=== PATIENT | female | born 1975 | race Caucasian/White ===

== ENCOUNTER 2016-09-03 20:43 | Emergency (ER) | payer OTHER ==
[~2016-09-03] VITALS: Wt 77.0 kg
[~2016-09-03 20:43] MED LIST: ACET-514 PO; CIPR500T4 PO; HYDR-3498 PO; IBUP-1542 PO; NAPR-688 PO; NO MEDS
--- NOTE | 2016-09-03 22:51 | ERD ---
ER Documentation Chief Complaint Date/Time DATE: 09/03/16 TIME: 22:48 Chief Complaint 6-7 weeks lmp 07/17/17 heavy vag bleed & cramps started this am HPI 41 year old female who is approximately 6-7 weeks , last was repaired , with a history of 1 miscarriage as well as 4 abortions comes to emergency room vaginal bleeding and cramping that started yesterday. She had a previous ultrasound done about 5 days ago and was told that she had a very early . Patient states that she is currently being followed by clinic , and would like to get a D&C however developed some bleeding and cramping yesterday. She denies fevers, chills or dizziness. ROS All systems reviewed and are negative except as per history of present illness. Medications Home Meds Active Scripts Ibuprofen* (Motrin*) 600 Mg Tab, 600 MG PO Q8 for 10 Days, #30 TAB 0 Refills Prov:COLLEEN MEHTA PA-C 04/21/16 Acetaminophen (Acetaminophen) 325 Mg Tablet, 975 MG PO Q8 Y for FEVER, #30 TAB Prov:SILAS BASSETT DO 10/06/15 Naproxen* (Naproxen*) 500 Mg Tablet, 500 MG PO BID Y for PAIN, #20 TAB Prov:SILAS BASSETT DO 10/06/15 Ciprofloxacin Hcl* (Ciprofloxacin Hcl*) 500 Mg Tablet, 500 MG PO BID, #20 TAB Prov:SILAS BASSETT DO 10/06/15 Hydrocodone Bit-Acetaminophen* ([place]*) 5-325 Mg Tab, 1 TAB PO Q6 Y for PAIN, # 20 TAB Prov:DANYEL SHAIKH PA-C 06/11/15 Reported Medications [No Meds] No Conflict Check 11/07/12 Allergies Allergies: Coded Allergies: No Known Drug Allergies (Verified Allergy, Mild, 09/21/13) PMhx/Soc Medical and Surgical Hx: pt denies Medical Hx, pt denies Surgical Hx History of Surgery: No Anesthesia Reaction: No Hx Neurological Disorder: No Hx Respiratory Disorders: No Hx Cardiac Disorders: No Hx Psychiatric Problems: No Hx Miscellaneous Medical Probl: No Hx Alcohol Use: No Hx Substance Use: No Hx Tobacco Use: No Smoking Status: Never smoker Physical Exam Vitals Vital Signs Date Time Temp Pulse Resp B/P Pulse Ox O2 Delivery O2 Flow Rate FiO2 09/03/16 21:12 98.5 74 20 143/72 100 Physical Exam General: Well-developed, well-nourished. The patient appears in no acute distress. HEENT: Head is normocephalic, atraumatic. No scleral icterus. Neck: Supple. Nontender. Lungs: Clear to auscultation. Normal air movement. Heart: Regular rate and rhythm. S1 and S2 are normal. No murmurs, gallops, or rubs. Abdomen: Soft, nontender, nondistended. Bowel sounds are normoactive. Extremities: No clubbing or cyanosis. Normal pulses. Moving extremities x 4. No weakness. Neurologic: Alert and oriented 3. No focal deficits. Skin: Normal turgor. No rash or lesions. Result Diagram: 09/03/16 2300 Results 24 hrs Laboratory Tests Test 09/03/16 23:00 Basophils # 0.010^3/ul Basophils % 0.5% Beta HCG, Quantitative 35.6mIU/ml Eosinophils # 0.110^3/ul Eosinophils % 1.0% Hematocrit 39.6% Hemoglobin 13.2g/dl Lymphocytes # 1.610^3/ul Lymphocytes % 21.5% Mean Corpuscular Hemoglobin 31.6pg Mean Corpuscular Hemoglobin Concent 33.4g/dl Mean Corpuscular Volume 94.5fl Mean Platelet Volume 8.8fl Monocytes # 0.410^3/ul Monocytes % 5.5% Neutrophils # 5.210^3/ul Neutrophils % 71.5% Nucleated Red Blood Cells # 0.010^3/ul Nucleated Red Blood Cells % 0.0/100WBC Platelet Count 94403^3/UL Red Blood Count 4.1910^6/ul Red Cell Distribution Width 13.3% Urine Bacteria OCCASIONAL Urine Bilirubin NEGATIVE Urine Clarity HAZY Urine Color LT. YELLOW Urine Glucose NEGATIVE% Urine Hemoglobin 3+ Urine Ketones NEGATIVE Urine Leukocyte Esterase NEGATIVE Urine Microscopic RBC >200/HPF Urine Microscopic WBC 0-2/HPF Urine Nitrite NEGATIVE Urine Specific [place] 1.020 Urine Squamous Epithelial Cells FEW Urine Total Protein NEGATIVE Urine Urobilinogen 0.2 E.U./dL Urine pH 6.0 White Blood Count 7.310^3/ul Procedures/MDM 41-year-old female who is 14 comes to the ER with vaginal bleeding. Patient's original plan was to get a D&C, her ultrasound today shows no evidence of intrauterine and hCG is only 35. Patient likely presents with a spontaneous , no evidence of ectopic or infectious process. She was given Tylenol for pain and will be discharged home to follow- up with her OB in 3-4 days. Departure Diagnosis: Primary Impression: Vaginal bleeding in patient at less than 20 weeks gestation Condition: DANYEL Aguilar PA-C Sep 03, 2016 22:51
[2016-09-03 23:17] LABS: ADD UMIC YES; URINE BILIRUBIN (Dip) NEGATIVE (NEGATIVE); URINE BLOOD (Dip) 3+ (NEGATIVE); URINE COLOR LT. YELLOW (YELLOW); URINE GLUCOSE (Dip) NEGATIVE (NEGATIVE); URINE KETONES (Dip) NEGATIVE (NEGATIVE); URINE LEUKOCYTE ESTERASE (Dip) NEGATIVE (NEGATIVE); URINE NITRITE (Dip) NEGATIVE (NEGATIVE); URINE TOTAL PROTEIN (Dip) NEGATIVE (NEGATIVE); URINE UROBILINOGEN (Dip) 0.2 E.U./dL (0.1-1.0)
[2016-09-03 23:19] LABS: BASOPHILS % 0.5 % (0.0-2.0); EOSINOPHILS # 0.1 10^3/ul (0.0-0.5); HEMATOCRIT 39.6 % (37.0-47.0); HEMOGLOBIN 13.2 g/dl (12.0-16.0); LYMPHOCYTES # 1.6 10^3/ul (0.8-2.9); LYMPHOCYTES % 21.5 % (15.0-51.0); MEAN CORPUSCULAR HEMOGLOBIN 31.6 pg (29.0-33.0); MEAN CORPUSCULAR HGB CONC 33.4 g/dl (32.0-37.0); MEAN CORPUSCULAR VOLUME 94.5 fl (82.0-101.0); MEAN PLATELET VOLUME 8.8 fl (7.4-10.4); MONOCYTE # 0.4 10^3/ul (0.3-0.9); MONOCYTES % 5.5 % (0.0-11.0); NEUTROPHIL # 5.2 10^3/ul (1.6-7.5); NEUTROPHILS % 71.5 % (39.0-77.0); PLATELET COUNT 276 10^3/UL (140-440); RED BLOOD COUNT 4.19 10^6/ul (4.20-5.40); RED CELL DISTRIBUTION WIDTH 13.3 % (11.5-14.5); UNCORRECTED WBC 7.3 10^3/ul (4.8-10.8); WHITE BLOOD COUNT 7.3 10^3/ul (4.8-10.8)
[2016-09-03 23:20] LABS: CONDITION 1
[2016-09-03 23:30] LABS: BACTERIA,URINE OCCASIONAL; SQUAMOUS EPITHELIAL CELL,UR FEW; URINE RBCS >200 /HPF (0)
--- NOTE | 2016-09-03 23:56 | RADRPT ---
PROCEDURE: US Pelvis. CLINICAL INDICATION: Vaginal Bleed () TECHNIQUE: Multiple sonographic images of the pelvis were obtained utilizing a transabdominal and endovaginal technique. COMPARISON: None. FINDINGS: The uterus is visualized and measures 8.4 x 4.7 x 6 cm in size. The endometrial echo complex is thic kened and measures 15 mm. There is no evidence of intrauterine . There is no evidence for free fluid. The right ovary has a normal echotexture and measures 2.36 x 1.73 x 2.06 cm . The left ovary has a normal echotexture and measures 4.3 x 3.0 x 3.6 cm with 2.4 cm left ovarian cyst.. No adnexal masses are noted. Normal blood flow bilaterally. IMPRESSION: 1. No evidence of IUP or extrauterine . Thickened endometrium. Correlate with serial seru m beta HCG measurements exclude the possibility of ectopic . 2. 2.4 cm left ovarian cyst. 3. No free fluid in the cul-de-sac. RPTAT:AAJJ Physician Rj Date Time Electronically viewed and signed by Physician Rj on 09/03/2016 23:56 ADRIANE/
[2016-09-04] MEDS ORDERED: ACETAMINOPHEN 325 MG TAB PO ONE (00:30)
== END 2016-09-04 00:30 | disposition home or self-care (01) ==
LOC: FTE 20:43
DX: O20.9 Hemorrhage in early pregnancy, unspecified (principal); Z3A.01 Less than 8 weeks gestation of pregnancy
CPT/HCPCS: 36415; 76801; 76817; 81001; 84702; 85025; 86900; 86901; Z7502; Z7610; 81003

== ENCOUNTER 2017-02-13 18:56 | Emergency (ER) | payer OTHER ==
[~2017-02-13] VITALS: Ht 152.4 cm; Wt 75.0 kg
[2017-02-13 19:16] VITALS: Ht 152.4 cm; Wt 75.0 kg
[2017-02-13] MEDS ORDERED: FLUT9.9S NASAL (19:25)
[2017-02-13] MEDS ORDERED: IBUP-1542 PO (19:25)
[2017-02-13] MEDS ORDERED: CARB15DR48 LEFT EAR (19:25)
[2017-02-13] MEDS ORDERED: CETI10CA PO (19:25)
[2017-02-13] MEDS ORDERED: NAPH15DR22 BOTH EYES (19:25)
--- NOTE | 2017-02-13 19:40 | ERD ---
ER Documentation Chief Complaint Date/Time DATE: 02/13/17 TIME: 19:33 Chief Complaint Left ear muffled hearing, bilateral eye itching, runny nose and sneezing throat itchiness for 1 month HPI 42-year-old female presents here in emergency department for multiple complaints. Patient's complaining of bilateral eye itching, runny nose and sneezing throat patient has for 1 month. Patient denies any eye discharge. Patient denies any trauma in the eye, patient denies any vision changes. Patient denies any fever or chills. Patient is complaining of runny nose, nasal congestion with throat itchiness. Patient denies any stridor or shortness of breath. Patient also is complaining of muffled hearing in the left ear, feels like left ear canal is blocked. Patient denies any ear discharge. Patient denies any foreign body sensation in the ear. Patient did not take any medications to help with symptoms. ROS All systems reviewed and are negative except as per history of present illness. Medications Home Meds Active Scripts Naphazoline-Pheniramine* (Visine-A*) 15 Ml Drops, 2 DROP BOTH EYES Q4H Y for RED EYES, #1 BOT Prov:LONNIE MAGANA NP 02/13/17 Fluticasone Propionate (Flonase Allergy Relief) 9.9 Ml [place].susp, 1 SPRAY NASAL BID, #1 BOTTLE TO EACH NOSTRIL Prov:LONNIE MAGANA NP 02/13/17 Ibuprofen* (Motrin*) 600 Mg Tab, 600 MG PO Q6H Y for PAIN AND OR ELEVATED TEMP, #30 TAB Prov:LONNIE MAGANA NP 02/13/17 Cetirizine Hcl* (Zyrtec*) 10 Mg Capsule, 10 MG PO DAILY, #30 TAB.CHEW Prov:LONNIE MAGANA NP 02/13/17 Carbamide Peroxide* (Debrox*) 6.5% - 15 Ml Drops, 10 DROP LEFT EAR BID, #1 BOTTLE Prov:LONNIE MAGANA NP 02/13/17 Ibuprofen* (Motrin*) 600 Mg Tab, 600 MG PO Q8 for 10 Days, #30 TAB 0 Refills Prov:COLLEEN MEHTA PA-C 04/21/16 Acetaminophen (Acetaminophen) 325 Mg Tablet, 975 MG PO Q8 Y for FEVER, #30 TAB Prov:SILAS BASSETT DO 10/06/15 Naproxen* (Naproxen*) 500 Mg Tablet, 500 MG PO BID Y for PAIN, #20 TAB Prov:SILAS BASSETT DO 10/06/15 Ciprofloxacin Hcl* (Ciprofloxacin Hcl*) 500 Mg Tablet, 500 MG PO BID, #20 TAB Prov:SILAS BASSETT DO 10/06/15 Hydrocodone Bit-Acetaminophen* ([place]*) 5-325 Mg Tab, 1 TAB PO Q6 Y for PAIN, # 20 TAB Prov:DANYEL SHAIKH PA-C 06/11/15 Reported Medications [No Meds] No Conflict Check 11/07/12 Allergies Allergies: Coded Allergies: No Known Drug Allergies (Verified Allergy, Mild, 09/21/13) PMhx/Soc Medical and Surgical Hx: pt denies Medical Hx, pt denies Surgical Hx History of Surgery: No Anesthesia Reaction: No Hx Neurological Disorder: No Hx Respiratory Disorders: No Hx Cardiac Disorders: No Hx Psychiatric Problems: No Hx Miscellaneous Medical Probl: No Hx Alcohol Use: No Hx Substance Use: No Hx Tobacco Use: No FmHx Family History: No coronary disease, No diabetes, No other Physical Exam Vitals Vital Signs Date Time Temp Pulse Resp B/P Pulse Ox O2 Delivery O2 Flow Rate FiO2 02/13/17 19:16 99.6 80 20 139/79 99 Physical Exam GENERAL: The patient is well developed and appropriate for usual state of health, in no apparent distress. HEENT: Atraumatic. Eyes are PERRL EOM intact. Conjunctiva noted to be watery, no erythema noted. No purulent discharge noted. Ears: Normal tympanic membrane, no erythema or bulging. No ear canal swelling. No ear discharge. Left ear canal noted to have some cerumen. Nose: Pale boggy nares. Clear nasal discharge. Normal nasal discharge. Throat: oropharynx clear. No tonsillar swelling or tonsillar exudates. No lymphadenopathy. CHEST: Clear to auscultation bilaterally. There are no rales, wheezes or rhonchi. HEART: Regular rate and rhythm. No murmurs, clicks, rubs or gallops. No S3 or S4. ABDOMEN: Soft, nontender and nondistended. Good bowel sounds. No rebound or guarding. No gross peritonitis. No gross organomegaly or masses. No Sexton sign or McBurney point tenderness. BACK: No midline or flank tenderness. EXTREMITIES: Equal pulses bilaterally. There is no peripheral clubbing, cyanosis or edema. No focal swelling or erythema. Full range of motion. Grossly neurovascularly intact. NEURO: Alert and oriented. Cranial nerves 2-12 intact. Motor strength in all 4 extremities with 5/5 strength. Sensation grossly intact. Normal speech and gait. SKIN: There is no apparent rash or petechia. The skin is warm and dry. HEMATOLOGIC AND LYMPHATIC: There is no evidence of excessive bruising or lymphedema. No gross cervical, axillary, or inguinal lymphadenopathy. Procedures/MDM Medical decision making: Patient's symptoms most active consistent with seasonal allergies, allergic rhinitis and allergic conjunctivitis. No symptoms of any acute bacterial infection. No symptoms of sepsis at this time. Patient appears well and is hemodynamically stable. Patient also has left ear cerumen impaction, unable to visualize the left ear tympanic membrane still. No foreign body in the ear. No symptoms of any acute bacterial ear infection Patient was given a prescription for Zyrtec, Flonase, Naphcon ophthalmic solution, Debrox otic solution. Patient was advised to follow-up with primary care doctor in 2-3 days for reevaluation of symptoms. Patient was advised to return to emergency department for any worsening symptoms. Departure Diagnosis: Primary Impression: Allergic conjunctivitis and rhinitis Laterality: bilateral Qualified Code: H10.13 - Allergic conjunctivitis and rhinitis, bilateral Additional Impression: Impacted cerumen Laterality: left Qualified Code: H61.22 - Impacted cerumen of left ear Condition: Stable Patient Instructions: Controlling Your Triggers: Allergens, Cerumen Impaction, Home Care, Allergic Rhinitis, Seasonal Allergy LONNIE MAGANA NP Feb 13, 2017 19:40
== END 2017-02-13 19:25 | disposition home or self-care (01) ==
LOC: FTE 18:56 → E/R 19:25
DX: H10.13 Acute atopic conjunctivitis, bilateral (principal); H61.22 Impacted cerumen, left ear
CPT/HCPCS: 99283

== ENCOUNTER 2018-12-07 13:24 | Emergency (ER) | payer OTHER ==
[~2018-12-07] VITALS: Wt 89.0 kg
[~2018-12-07 13:24] MED LIST changes: +CARB15DR50 LEFT EAR; +CETI10CA PO; +FLUT9.9S NASAL; +NAPH15DR69 BOTH EYES
[2018-12-07] MEDS ORDERED: ONDANSETRON 4 MG INJ IV STA (14:53)
[2018-12-07] MEDS ORDERED: SOD CHLORIDE 0.9% 1,000 ML IV STA (14:53)
[2018-12-07] MEDS ORDERED: MECLIZINE 12.5 MG TAB PO ONE (15:00)
[2018-12-07] MEDS ORDERED: KETOROLAC 15 MG INJ IV STA (15:54)
[2018-12-07] MEDS ORDERED: IBUP-1542 PO (15:57)
[2018-12-07] MEDS ORDERED: MECL-77 PO (15:57)
--- NOTE | 2018-12-07 16:01 | ERD ---
ER Documentation Chief Complaint Chief Complaint VERTIGO TODAY HPI This 43-year-old female presents with spinning type dizziness started today. Is worse when she moves her head. She has additional complaints of low back pain, palpitations, general malaise. She denies any recent URI symptoms, chest pain, urinary complaints. She denies any history of trauma. ROS All systems reviewed and are negative except as per history of present illness. Medications Home Meds Active Scripts Ibuprofen* (Motrin*) 600 Mg Tab, 600 MG PO Q6, #20 TAB Prov:RUPERT FISHER MD 12/07/18 Meclizine Hcl* (Meclizine Hcl*) 25 Mg Tablet, 25 MG PO Q8H PRN for DIZZINESS, #20 TAB Prov:RUPERT FISHER MD 12/07/18 Naphazoline-Pheniramine* (Visine-A*) 15 Ml Drops, 2 DROP BOTH EYES Q4H PRN for RED EYES, #1 BOT Prov:LONNIE MAGANA NP 02/13/17 Fluticasone Propionate (Flonase Allergy Relief) 9.9 Ml [place].susp, 1 SPRAY NASAL BID, #1 BOTTLE TO EACH NOSTRIL Prov:LONNIE MAGANA NP 02/13/17 Ibuprofen* (Motrin*) 600 Mg Tab, 600 MG PO Q6H PRN for PAIN AND OR ELEVATED TEMP, #30 TAB Prov:LONNIE MAGANA NP 02/13/17 Cetirizine Hcl* (Zyrtec*) 10 Mg Capsule, 10 MG PO DAILY, #30 TAB.CHEW Prov:LONNIE MAGANA NP 02/13/17 Carbamide Peroxide* (Debrox*) 6.5% - 15 Ml Drops, 10 DROP LEFT EAR BID, #1 BOTTLE Prov:LONNIE MAGANA NP 02/13/17 Ibuprofen* (Motrin*) 600 Mg Tab, 600 MG PO Q8 for 10 Days, #30 TAB 0 Refills Prov:COLLEEN MEHTA PA-C 04/21/16 Acetaminophen (Acetaminophen) 325 Mg Tablet, 975 MG PO Q8 PRN for FEVER, #30 TAB Prov:SILAS BASSETT DO 10/06/15 Naproxen* (Naproxen*) 500 Mg Tablet, 500 MG PO BID PRN for PAIN, #20 TAB Prov:SILAS BASSETT DO 10/06/15 Ciprofloxacin Hcl* (Ciprofloxacin Hcl*) 500 Mg Tablet, 500 MG PO BID, #20 TAB Prov:SILAS BASSETT DO 10/06/15 Hydrocodone Bit-Acetaminophen* ([place]*) 5-325 Mg Tab, 1 TAB PO Q6 PRN for PAIN, #20 TAB Prov:DANYEL SHAIKH PA-C 06/11/15 Reported Medications [No Meds] No Conflict Check 11/07/12 Allergies Allergies: Coded Allergies: No Known Drug Allergies (Verified Allergy, Mild, 09/21/13) PMhx/Soc History of Surgery: No Anesthesia Reaction: No Hx Neurological Disorder: No Hx Respiratory Disorders: No Hx Cardiac Disorders: No Hx Psychiatric Problems: No Hx Miscellaneous Medical Probl: No Hx Alcohol Use: No Hx Substance Use: No Hx Tobacco Use: No Smoking Status: Never smoker FmHx Family History: No diabetes, No coronary disease, No other Physical Exam Vitals Vital Signs Date Temp Pulse Resp B/P (MAP) Pulse Ox O2 O2 Flow FiO2 Time Delivery Rate 12/07/18 98.8 70 18 116/77 99 13:33 (90) Physical Exam Const: No acute distress Head: Atraumatic Eyes: Normal Conjunctiva ENT: Normal External Ears, Nose and Mouth. Neck: Full range of motion. No meningismus. Resp: Clear to auscultation bilaterally Cardio: Regular rate and rhythm, no murmurs Abd: Soft, non tender, non distended. Normal bowel sounds Skin: No petechiae or rashes Back: No midline or flank tenderness. Tenderness right L4-5 area. Ext: No cyanosis, or edema Neur: Awake and alert cranial nerves II through XII grossly intact. No cerebellar signs. Mildly reproducible vertigo to the right. Psych: Normal Mood and Affect Result Diagram: 12/07/18 1507 12/07/18 1507 Results 24 hrs Laboratory Tests Test 12/07/18 15:07 12/07/18 15:09 White Blood Count 9.8 10^3/ul Red Blood Count 4.41 10^6/ul Hemoglobin 13.7 g/dl Hematocrit 41.3 % Mean Corpuscular Volume 93.7 fl Mean Corpuscular Hemoglobin 31.1 pg Mean Corpuscular Hemoglobin Concent 33.2 g/dl Red Cell Distribution Width 12.3 % Platelet Count 263 10^3/UL Mean Platelet Volume 10.6 fl Immature Granulocytes % 0.400 % Neutrophils % 88.3 % Lymphocytes % 9.0 % Monocytes % 2.0 % Eosinophils % 0.1 % Basophils % 0.2 % Nucleated Red Blood Cells % 0.0 /100WBC Immature Granulocytes # 0.040 10^3/ul Neutrophils # 8.7 10^3/ul Lymphocytes # 0.9 10^3/ul Monocytes # 0.2 10^3/ul Eosinophils # 0.0 10^3/ul Basophils # 0.0 10^3/ul Nucleated Red Blood Cells # 0.0 10^3/ul Urine Color YELLOW Urine Clarity SLIGHTLY CLOUDY Urine pH 6.0 Urine Specific [place] [employer] 1.021 Urine Ketones NEGATIVE mg/dL Urine Nitrite NEGATIVE mg/dL Urine Bilirubin NEGATIVE mg/dL Urine Urobilinogen NEGATIVE mg/dL Urine Leukocyte Esterase NEGATIVE Loren/ul Urine Microscopic RBC 36 /HPF Urine Microscopic WBC 0 /HPF Urine Squamous Epithelial Cells FEW /HPF Urine Bacteria FEW /HPF Urine Mucus FEW /HPF Urine Hemoglobin 2+ mg/dL Urine Glucose NEGATIVE mg/dL Urine Total Protein NEGATIVE mg/dl Sodium Level 141 mmol/L Potassium Level 4.0 mmol/L Chloride Level 106 mmol/L Carbon Dioxide Level 26 mmol/L Anion Gap 9 Blood Urea Nitrogen 15 mg/dl Creatinine 0.48 mg/dl Est Glomerular Filtrat Rate mL/min > 60 mL/min Glucose Level 115 mg/dl Calcium Level 9.6 mg/dl Total Bilirubin 0.4 mg/dl Direct Bilirubin 0.00 mg/dl Indirect Bilirubin 0.4 mg/dl Aspartate Amino Transf (AST/SGOT) 28 IU/L Alanine Aminotransferase (ALT/SGPT) 23 IU/L Alkaline Phosphatase 51 IU/L Total Protein 8.0 g/dl Albumin 4.5 g/dl Globulin 3.50 g/dl Albumin/Globulin Ratio 1.28 POC Beta HCG, Qualitative NEGATIVE Current Medications Medications Dose Sig/Bre Start Time Status Last (Trade) Ordered Route PRN Stop Time Admin Dose Reason Admin Sodium 1,000 ml @ Q1H STAT 12/07/18 DC 12/07/18 Chloride 1,000 mls/hr IV 14:53 15:17 12/07/18 15:52 Ondansetron 4 mg ONCE STAT 12/07/18 DC 12/07/18 HCl (Zofran IV 14:53 15:17 Inj) 12/07/18 14:55 Meclizine 25 mg ONCE ONCE 12/07/18 DC 12/07/18 HCl PO 15:00 15:17 (Antivert) 12/07/18 15:01 Ketorolac 15 mg ONCE STAT 12/07/18 DC Tromethamine IV 15:54 (Toradol) 12/07/18 15:55 Procedures/MDM hCG negative, CBC normal CMP normal. Patient was given Zofran, Antivert. Patient had benign abdomen on serial exam. Patient presents with spinning type dizziness, low back pain, palpitations, nausea of uncertain etiology. She may have peripheral vertigo. Is no current signs or symptoms of neurologic deficit, sepsis, abdominal pain, chest pain, shortness of breath. She will be discharged home with recommendations for rest, fluids, prescription of Antivert, Zofran, ibuprofen, with recommendations for primary care follow-up and return precautions. The patient was stable with no new complaints during the ER course. Clinically, there is no current evidence to suggest meningitis, sepsis, acute abdomen, pneumonia, stroke, acute coronary syndrome, pulmonary embolism, aortic dissection or any other emergent condition appearing to require further evaluation or hospitalization. Patient counseled regarding my diagnostic impression and care plan. Prior to discharge all questions answered. Pt agrees with treatment plan and understands strict return precautions. Pt is instructed to follow up with primary care provider within 24-48 hours. Precautionary in structions provided including instructions to return to the ER if not improving or for any worsening or changing symptoms or concerns. Departure Diagnosis: Primary Impression: Dizziness Condition: Stable Patient Instructions: Dizziness, Unk Cause, Vertigo, Unspecified Referrals: BRYAN GLOVER MD (PCP) Additional Instructions: Examinations normal today. Uncertain cause of symptoms. We will treat for vertigo. May be early viral illness. Recheck for new worsening symptoms with primary care doctor. Rest and drink plenty fluids at home. RUPERT FISHER MD Dec 07, 2018 16:01
[2018-12-07] MEDS ORDERED: ONDA8TAB14 PO (16:02)
[2018-12-07 16:35] VITALS: BP 111/69; PULSE 80; RESP 18
== END 2018-12-07 16:37 | disposition home or self-care (01) ==
LOC: FTE 13:24
DX: R42 Dizziness and giddiness (principal)
CPT/HCPCS: 36415; 80053; 81001; 81025; 85025; 96361; 96374; 96375; J1885; J2405; J7030; Z7502; Z7610